=== PATIENT | male | born 1965 | race Caucasian/White ===

== ENCOUNTER → 2021-01-07 02:22 | Outpatient (CLI) | payer BC, SELFPAY ==
[2021-01-07 19:27] LABS: SARS-CoV-2 RNA PCR Negative
== END ==
PROVIDERS: PCP Family Medicine Adolescent Medicine; Visit Provider Internal Medicine Gastroenterology
DX: Z20.822 Contact with and (suspected) exposure to COVID-19 (principal); Z01.812 Encounter for preprocedural laboratory examination
CPT/HCPCS: C9803; U0003; U0005

== ENCOUNTER 2021-01-10 01:28 | Day surgery (SDC) | payer BC, SELFPAY ==
[2020-12-24 10:21] VITALS: BMI 47.4
[2021-01-10 06:48] VITALS: BP 150/82; PULSE 82; RESP 18; TEMP 36.4; O2SAT 96
[2021-01-10] MEDS: LACTATED RINGERS 1,000 ML 150 ML IV CONT (06:56)
[2021-01-10 07:07] LABS: Glucose Point of Care 203 (65-105)
--- NOTE | 2021-01-10 07:18 | PM.HPGS ---
History of Present Illness History of Present Illness Consent: Risks, benefits, and alternatives have been discussed and questions answered. Patient agrees to proceed with procedure. Chief complaint: Neoplasm Screening Narrative: Hang Pacheco is a 55 year old male referred for colon cancer screening. This is his 1st colonoscopy Review of Systems Review of Systems: All systems reviewed & are unremarkable except as noted in HPI and below PMFSH Social History Social History Smoking packs per day: 2 Smoking cigarettes per day: 40.0 Years smoked: 30 Smoking pack-years: 60.00 Smoking status: Former smoker Alcohol intake: current Alcohol use details: rarely Living arrangements: with family Gender identity (if verbalized by the patient): Male Spiritual care concerns: No Meds Home Medications and Allergies Home Medications Medication Instructions Recorded Confirmed Type atorvastatin 40 mg PO DAILY 12/24/20 12/24/20 History diclofenac sodium 75 mg PO DAILY 12/24/20 12/24/20 History fluoxetine 20 mg PO DAILY 12/24/20 12/24/20 History glimepiride 2 mg PO DAILY 12/24/20 12/24/20 History losartan 100 mg PO DAILY 12/24/20 12/24/20 History metformin 2,000 mg PO DAILY 12/24/20 12/24/20 History metoprolol succinate 50 mg PO DAILY 12/24/20 12/24/20 History trazodone 12/24/20 History Allergies Allergy/AdvReac Type Severity Reaction Status Date / Time cat dander Allergy Unknown Verified 01/10/21 06:46 BEES Allergy Unknown Uncoded 12/24/20 10:40 Vital Signs Vital Signs - 24 hr 01/10/21 06:48 Temperature 36.4 C Pulse Rate 82 Respiratory Rate 18 Blood Pressure 150/82 H Pulse Oximetry 96 Exam Const: General: no acute distress Nutritional Appearance: obese Resp: Auscultation: clear to auscultation bilaterally Cardio: Rhythm: regular rhythm GI: Inspection: normal to inspection and obesity GI Palp: Yes Soft to palpation and No Tenderness to palpation present (GI) Auscultation: normal bowel sounds Neuro: General: patient oriented x3 Assessment and Plan Assessment and plan (1) Colon cancer screening: Code(s): Z12.11 - Encounter for screening for malignant neoplasm of colon Status: Acute Additional Plan Colonoscopy with possible biopsy or polypectomy or cautery or injection of substances.
--- NOTE | 2021-01-10 07:32 | WPDANESEPPF ---
Anes - Initial Pre Proc Eval Procedure: Operation Date: 01/10/21 08:00 Proposed Procedures p Screening Colonoscopy - Hector Ordaz MD Date/Time: 01/10/21 07:32 Surgeon: Hector Ordaz MD Pre Op Diagnosis: Neoplasm Screening Patient Data Age: 55 Gender: M Height: 6 ft 1 in Weight: 162.3 kg Last Vital Signs Temp 97.6 F 01/10/21 06:48 Pulse 82 01/10/21 06:48 Resp 18 01/10/21 06:48 BP 150/82 H 01/10/21 06:48 Pulse Ox 96 01/10/21 06:48 Allergies Allergy/AdvReac Type Severity Reaction Status Date / Time cat dander Allergy Unknown Verified 01/10/21 06:46 BEES Allergy Unknown Uncoded 12/24/20 10:40 Home Medications Medication Instructions Recorded Confirmed Type atorvastatin 40 mg PO DAILY 12/24/20 12/24/20 History diclofenac sodium 75 mg PO DAILY 12/24/20 12/24/20 History fluoxetine 20 mg PO DAILY 12/24/20 12/24/20 History glimepiride 2 mg PO DAILY 12/24/20 12/24/20 History losartan 100 mg PO DAILY 12/24/20 12/24/20 History metformin 2,000 mg PO DAILY 12/24/20 12/24/20 History metoprolol succinate 50 mg PO DAILY 12/24/20 12/24/20 History trazodone 12/24/20 History Laboratory Tests 01/10/21 07:02 POC Capillary Glucose 203 mg/dl H mg/dl (65-105) Patient hx anesthesia problems: none Family hx anesthesia problems: none [facility] Past Medical History Medical History (Updated 01/10/21 @ 07:26 by Anish Sheikh MD) Anxiety Diabetes Hyperlipidemia Hypertension SURAJ (obstructive sleep apnea) Social History Social History Smoking packs per day: 2 Smoking cigarettes per day: 40.0 Years smoked: 30 Smoking pack-years: 60.00 Smoking status: Former smoker Alcohol intake: current Alcohol use details: rarely Living arrangements: with family Gender identity (if verbalized by the patient): Male Spiritual care concerns: No Anes - Eval Final PreProcedure Day of Procedure 01/10/21 07:32 Patient weight: morbidly obese Heart: regular rate and rhythm Lungs: clear to auscultation Airway: Mallampati scale class III Neurological: alert and oriented Last oral intake: >/= 8 hours ASA classification: IV Emergent: no Anesthetic plan: proceed Anesthesia type and monitoring: general GIVS and standard monitoring Informed Consent: The patient's anesthetic plan and its attendant risks and benefits were discussed with the patient/family/POA. Questions were solicited and answers provided to the satisfaction of the patient/family/POA.
[2021-01-10 08:30] VITALS: BP 102/57; PULSE 74; RESP 23; O2SAT 94
[2021-01-10 08:40] VITALS: BP 117/67; PULSE 73; RESP 16; O2SAT 97
[2021-01-10 08:50] VITALS: BP 131/71; PULSE 78; RESP 14; O2SAT 98
== END 2021-01-10 09:12 | disposition home or self-care (01) ==
PROVIDERS: PCP Family Medicine Adolescent Medicine; Visit Provider Internal Medicine Gastroenterology
PROC: 0DJD8ZZ Inspection of Lower Intestinal Tract, Via Natural or Artificial Opening Endoscopic (ICD-10-PCS; CPT 45378; principal; 2021-01-10 08:00)
DX: Z12.11 Encounter for screening for malignant neoplasm of colon (principal); K63.5 Polyp of colon; D12.5 Benign neoplasm of sigmoid colon; Z87.891 Personal history of nicotine dependence; Z79.84 Long term (current) use of oral hypoglycemic drugs; F41.9 Anxiety disorder, unspecified; E11.9 Type 2 diabetes mellitus without complications; E78.5 Hyperlipidemia, unspecified; I10 Essential (primary) hypertension; G47.33 Obstructive sleep apnea (adult) (pediatric); E66.01 Morbid (severe) obesity due to excess calories; Z68.42 Body mass index [BMI] 45.0-49.9, adult
CPT/HCPCS: 45385; 82948; 88305; J2704; J7120

== ENCOUNTER 2021-12-01 14:51 | Outpatient (CLI) | payer BC, SELFPAY ==
--- NOTE | ~2021-12-01 | US_ITS ---
EXAMINATION: US venous doppler LE EXAM DATE: 12/01/2021 16:22 INDICATION: M79.604 - Pain in right leg . Bilateral calf pain. TECHNIQUE: Multiple grayscale, color flow and Doppler images of the lower extremity deep venous syste ms bilaterally were obtained and reviewed. There is no prior study for comparison. FINDINGS: Right side: The right common femoral, femoral and profunda veins demonstrate normal color flow, respi ratory variation, augmentation and compressibility. Compressibility, color flow confirmed within the right popliteal, posterior tibial, peroneal, and greater saphenous veins. Left side: The left common femoral, femoral and profunda veins demonstrate normal color flow, respira tory variation, augmentation and compressibility. Compressibility, color flow confirmed within the l eft popliteal, posterior tibial, peroneal, and greater saphenous veins. IMPRESSION: 1. No lower extremity deep venous thrombosis bilaterally. Reviewed, dictated and finalized at location B. ET [employer]
== END 2021-12-01 14:52 | disposition home or self-care (01) ==
PROVIDERS: PCP Family Medicine Adolescent Medicine; Visit Provider Physician Assistant
DX: U07.1 COVID-19 (principal); J12.82 Pneumonia due to coronavirus disease 2019; M79.604 Pain in right leg; M79.605 Pain in left leg
CPT/HCPCS: 93970

== ENCOUNTER 2021-12-29 10:45 | Outpatient (CLI) | payer BC, SELFPAY ==
--- NOTE | ~2021-12-29 | CT_ITS ---
EXAMINATION: CTA chest PE protocol EXAM DATE: 12/29/2021 11:25 INDICATION: U07.1 - COVID-19 pneumonia. TECHNIQUE: Spiral CTA of the chest (pulmonary arteries) was performed with 100 cc Omnipaque 350 intr avenous contrast injection. Images were acquired during the pulmonary arterial phase. Coronal maxi mum intensity projection 3D-reconstructions were created by the technologist on dedicated workstation . Axial, coronal and sagittal reformatted images were reviewed. The dose-length product (DLP) for t his examination was 1121.81 mGy-cm. The exposure was tailored according to patient size (auto mA ex posure control), and iterative reconstruction (ASIR) was used as additional dose reduction technique. There is no prior study for comparison. FINDINGS: Pulmonary arteries are well opacified and without intraluminal filling defects. No thora cic aortic dissection. There is diffuse bilateral groundglass airspace disease and interlobular sept al thickening, appearance consistent with subacute COVID pneumonia, but please clinically correlate. Other considerations could include other viral pneumonia, pulmonary edema, an/or chronic interstitial lung disease. There are no pleural or pericardial effusions. Tracheobronchial tree is patent. Th ere is no mediastinal, hilar or axillary lymphadenopathy. There is no pneumothorax. Mild cardiome johana. There is mild to moderate coronary arterial calcification, arterial sclerosis. Upper abdomen is unremarkable. No osteoblastic or osteolytic lesions identified. Cervical fusion hardware. IMPRESSION: 1. Diffuse bilateral airspace disease, appearance consistent with subacute COVID pneumonia, but not specific for that diagnosis. Please clinically correlate. 2. No pulmonary emboli. Reviewed, dictated and finalized at location A. [facility] [employer] IMPRESSION: 1. Diffuse bilateral airspace disease, appearance consistent with subacute COV ID pneumonia, but not specific for that diagnosis. Please clinically correlate. 2. No pulmonary emboli.
[2021-12-29 11:18] LABS: Estimated Glomerular Filt Rate > 60
== END 2021-12-29 10:46 | disposition home or self-care (01) ==
LOC: ANHIMG 10:49
PROVIDERS: PCP Family Medicine Adolescent Medicine; Visit Provider Physician Assistant
DX: R06.02 Shortness of breath (principal); J12.82 Pneumonia due to coronavirus disease 2019; U07.1 COVID-19; R91.8 Other nonspecific abnormal finding of lung field
CPT/HCPCS: 71275; Q9967